=== PATIENT | female | born 1960 | race Caucasian/White ===

== ENCOUNTER 2021-12-18 06:51 | Day surgery (SDC) | payer BC, OTHER ==
[2021-12-18] MEDS ORDERED: Lactated Ringers 1,000 ML IV SCH (07:00)
[2021-12-18] MEDS ORDERED: cefUROXime sodium 0.005 GM in Sodium Chloride Flush 30 ML*** 0.5 ML IJ ONE (07:00)
[2021-12-18] MEDS ORDERED: NON-FORMULARY ITEM OP ONE (07:00)
[2021-12-18] MEDS ORDERED: TETRACAINE 0.5% STERI-UNIT SOL OP ONE ×2 (07:00)
[2021-12-18] MEDS ORDERED: BETADINE 5% OPHTHALMIC 30 ML OP ONE (07:00)
[2021-12-18] MEDS ORDERED: Ak-Dilate OPHTHALMIC*** 1.065 ML, Cyclogyl 1% OPHTH SOL 1.065 ML, GATIFLOXACIN 0.5% OPH... OP ONE ×4 (07:00)
[2021-12-18] MEDS ORDERED: Lactated Ringers 1,000 ML IV ONE (07:47)
[2021-12-18] MEDS ORDERED: DIPRIVAN 200 MG/20 ML IV ONE ×2 (09:00→09:24)
[2021-12-18] MEDS ORDERED: Epinephrine Preservative Free 1 MG/ML IJ ONE (09:00)
[2021-12-18] MEDS ORDERED: LIDOCAINE HCL 1% 50 MG/5 ML VL PF IJ ONE (09:00)
[2021-12-18] MEDS ORDERED: Zofran 4 MG/2 ML VIAL IV PRN (09:00)
[2021-12-18] MEDS ORDERED: ACETAZOLAMIDE 250 MG TABLET PO ONE (09:00)
[2021-12-18 10:01] VITALS: O2SAT 100
[2021-12-18 10:11] VITALS: BP 144/66; PULSE 60
== END 2021-12-18 10:16 | disposition home or self-care (01) ==
LOC: SDC 06:51
PROVIDERS: ATTEND Ophthalmology
DX: H25.812 Combined forms of age-related cataract, left eye (principal); E11.9 Type 2 diabetes mellitus without complications
CPT/HCPCS: 82947; C1780; J0171; J2001; J2704; A9270-GY

== ENCOUNTER 2022-02-12 07:35 | Day surgery (SDC) | payer BC, OTHER ==
[~2022-02-12 07:35] MED LIST: Ak-Dilate OPHTHALMIC*** 1.065 ML, Cyclogyl 1% OPHTH SOL 1.065 ML, GATIFLOXACIN 0.5% OPH... OP ONE; BETADINE 5% OPHTHALMIC 30 ML OP ONE; Lactated Ringers 1,000 ML IV SCH; NON-FORMULARY ITEM OP ONE; TETRACAINE 0.5% STERI-UNIT SOL OP ONE; cefUROXime sodium 0.005 GM in Sodium Chloride Flush 30 ML*** 0.5 ML IJ ONE
[2022-02-12] MEDS ORDERED: Epinephrine Preservative Free 1 MG/ML IJ ONE (07:36)
[2022-02-12] MEDS ORDERED: LIDOCAINE HCL 1% 50 MG/5 ML VL PF IJ ONE (07:36)
[2022-02-12] MEDS ORDERED: Lactated Ringers 1,000 ML IV ONE (08:36)
[2022-02-12] MEDS ORDERED: ACETAZOLAMIDE 250 MG TABLET PO ONE (09:00)
[2022-02-12] MEDS ORDERED: Zofran 4 MG/2 ML VIAL IV PRN (09:00)
[2022-02-12] MEDS ORDERED: DIPRIVAN 200 MG/20 ML IV ONE (10:42)
[2022-02-12] MEDS ORDERED: Xylocaine-Mpf 2% 5 Ml Vial ONE (10:42)
[2022-02-12 11:10] VITALS: O2SAT 97
[2022-02-12 11:14] VITALS: BP 133/75; PULSE 80
== END 2022-02-12 11:16 | disposition home or self-care (01) ==
LOC: SDC 07:35
PROVIDERS: ATTEND Ophthalmology
DX: H25.811 Combined forms of age-related cataract, right eye (principal); E11.9 Type 2 diabetes mellitus without complications
CPT/HCPCS: 82947; C1780; J0171; J2001; J2704; A9270-GY

== ENCOUNTER 2022-04-15 05:59 | Day surgery (SDC) | payer BC, OTHER ==
[2022-04-15] MEDS ORDERED: Lactated Ringers 1,000 ML IV SCH (06:30)
[2022-04-15] MEDS ORDERED: DIPRIVAN 200 MG/20 ML IV ONE ×2 (07:28→07:40)
[2022-04-15] MEDS ORDERED: Versed 2 MG/2 ML Injection ONE (07:28)
[2022-04-15 08:36] VITALS: O2SAT 99
[2022-04-15 08:43] VITALS: BP 138/74; PULSE 68
--- NOTE | 2022-04-15 10:29 | OP ---
SURGERY DATE/TIME: 04/15/2022 0727 PREOPERATIVE DIAGNOSIS: Screening exam. POSTOPERATIVE DIAGNOSES: Small lesion in the transverse colon. PROCEDURE: Colonoscopy with cold forceps biopsy. SURGEON: Dr. Morgan Mcgraw. ANESTHESIA: MAC. Medications given by anesthesia department. HISTORY: The patient is a 61-year-old white female presenting now for screening examination of the colon. She was appraised of the risks of the procedure including the risk of perforation, phlebitis, untoward reaction to medication, bleeding and missed lesions. The patient verbalized her understanding and desired to have the procedure performed. DESCRIPTION OF PROCEDURE: The patient was given the medications by the anesthesia department. She had continuous pulse oximetry, ECG monitoring, intermittent blood pressure monitoring and tidal CO2 monitoring during the examination. The patient is placed in the left lateral decubitus position. A digital rectal examination performed and revealed normal anal sphincter tone and no masses. The flexible Olympus pediatric colonoscope was used to intubate the rectum. A view of the colon was developed sequentially to the cecum. Upon insertion and withdrawal, including a retroflex view in the rectum, was noted one small area in the transverse colon that might possibly represent a sessile tubular adenoma and this was biopsied using cold biopsy technique with forceps. No other mucosal lesions being encountered, the scope was removed from the patient who tolerated the procedure well and was sent back to OP recovery in good condition. The prep was noted to be fair to good.
== END 2022-04-15 08:40 | disposition home or self-care (01) ==
LOC: SDC 05:59
PROVIDERS: ATTEND Family Medicine
DX: Z12.11 Encounter for screening for malignant neoplasm of colon (principal); K63.5 Polyp of colon; E11.9 Type 2 diabetes mellitus without complications
CPT/HCPCS: 82947; J2250; J2704

== ENCOUNTER 2022-10-31 22:06 | Emergency (ER) | payer BC, OTHER ==
[2022-10-31 22:28] VITALS: PULSE 93; O2SAT 98
[2022-10-31 23:09] VITALS: BP 112/83
--- NOTE | 2022-10-31 23:39 | ERPHSYRPT ---
- History of Present Illness Time Seen by Provider: 10/31/22 22:30 Source: patient Exam Limitations: no limitations Patient Subjective Stated Complaint: Pt reports she tripped over a garden hose, hurting right hand up to elbow, right knee, right lower back and left palm. Triage Nursing Assessment: Pt alert and oriented x3. No apparent respiratory distress. Skin w/p/d. Ambulated to ED cot without difficulty, limp noted. No obvious deformities. Physician History: Patient is a 62-year-old female presents to our ED for evaluation status post fall. Patient tripped over a garden hose. Patient has pain to bilateral hands. Patient also has some discomfort to her right elbow and right knee. However no bony tenderness. To either. No BHT or LOC. No neck pain. Cervical spine cleared clinically. The fall was mechanical. It was not associated with chest pain or shortness of breath. No associated nausea vomiting or diaphoresis. No numbness weakness or tingling. Injury occurred just prior to arrival. Patient voices no other complaints or concerns at this time. Portions of this note were created with voice recognition technology. There may be grammatical, spelling, punctuation or sound alike errors Timing/Duration: today Severity: moderate Modifying Factors: Improves With: nothing Associated Symptoms: denies symptoms Allergies/Adverse Reactions: No Known Drug Allergies Allergy (Verified 10/31/22 22:20) Home Medications: Glipizide 5 mg [Glucotrol 5 MG] 5 mg PO BID 12/13/21 [History] Lisinopril 5 mg [Zestril 5 MG] 5 mg PO DAILY 12/13/21 [History] Metformin HCl [Metformin ER Osmotic] 1,000 mg PO BID 12/13/21 [History] Simvastatin 10 mg [Zocor 10MG] 10 mg PO DAILY 12/13/21 [History] Venlafaxine HCl [Effexor Xr] 150 mg PO DAILY 02/12/22 [History] Hx Tetanus, Diphtheria Vaccination/Date Given: No Hx Influenza Vaccination/Date Given: Yes Hx Pneumococcal Vaccination/Date Given: Yes Travel Risk - International Travel Have you traveled outside of the country in past 3 weeks: No - Coronavirus Screening Are you exhibiting any of the following symptoms?: No Close contact with a COVID-19 positive Pt in past 14-21 Days: No - Vaccine Status Have you recieved a Covid-19 vaccination: No - Review of Systems Constitutional: No Symptoms, No Fever, No Chills Eyes: No Symptoms Ears, Nose, & Throat: No Symptoms Respiratory: No Symptoms, No Cough, No Dyspnea Cardiac: No Symptoms, No Chest Pain, No Edema, No Syncope Abdominal/Gastrointestinal: No Symptoms, No Abdominal Pain, No Nausea, No Vomiting, No Diarrhea Genitourinary Symptoms: No Symptoms, No Dysuria Musculoskeletal: No Symptoms, No Back Pain, No Neck Pain Skin: No Symptoms, No Rash Neurological: No Symptoms, No Dizziness, No Focal Weakness, No Sensory Changes Psychological: No Symptoms Endocrine: No Symptoms Hematologic/Lymphatic: No Symptoms Immunological/Allergic: No Symptoms All Other Systems: Reviewed and Negative - Past Medical History Pertinent Past Medical History: Yes Neurological History: No Pertinent History ENT History: Cataracts Cardiac History: High Cholesterol, Hypertension Respiratory History: No Pertinent History Endocrine Medical History: Diabetes Type II Musculoskeletal History: No Pertinent History GI Medical History: No Pertinent History History: No Pertinent History Psycho-Social History: Anxiety - Past Surgical History Past Surgical History: Yes Neuro Surgical History: No Pertinent History Cardiac: No Pertinent History Respiratory: No Pertinent History Gastrointestinal: No Pertinent History Genitourinary: No Pertinent History Musculoskeletal: No Pertinent History Female Surgical History: No Pertinent History Other Surgical History: colonoscopy - Social History Smoking Status: Never smoker Exposure to second hand smoke: Yes Drug Use: none Patient Lives Alone: No - Nursing Vital Signs Nursing Vital Signs: Initial Vital Signs Temperature 98.1 F 10/31/22 22:07 Pulse Rate 90 10/31/22 22:07 Respiratory Rate 16 10/31/22 22:07 Blood Pressure 159/83 10/31/22 22:07 O2 Sat by Pulse Oximetry 97 10/31/22 22:07 Pain Scale Pain Intensity 5 - Physical Exam General Appearance: no apparent distress, alert Eye Exam: PERRL/EOMI, eyes nml inspection Ears, Nose, Throat Exam: normal ENT inspection, TMs normal, pharynx normal, moist mucous membranes Neck Exam: normal inspection, non-tender, supple, full range of motion Respiratory Exam: normal breath sounds, lungs clear, airway intact, No respiratory distress Cardiovascular Exam: regular rate/rhythm, normal heart sounds, normal peripheral pulses Gastrointestinal/Abdomen Exam: soft, normal bowel sounds, No tenderness, No mass Back Exam: normal inspection, normal range of motion, No CVA tenderness, No vertebral tenderness Extremity Exam: normal inspection, normal range of motion, pelvis stable, other (Ecchymosis to the left thenar eminence. Tenderness to palpation at the right fifth metacarpal. No wrist pain elbow range of motion within normal limits. No bony tenderness to the elbow. Patient ambulatory. No bony tenderness at the right knee. All extremities are neurovascular intact distally.) Neurologic Exam: alert, oriented x 3, cooperative, normal mood/affect, nml cerebellar function, nml station & gait, sensation nml, No motor deficits Skin Exam: normal color, warm, dry, No rash Lymphatic Exam: No adenopathy SpO2 Interpretation: normal SpO2: 98 O2 Delivery: Room Air - Course Nursing assessment & vital signs reviewed: Yes - Radiology Exams Hand X-ray Interpretation: Interpreted by me (No fracture dislocation. No soft tissue abnormalities observed on x-ray.) Other X-ray Interpretation: Interpreted by me (Left hand no fracture dislocation. No soft tissue abnormalities.) Ordered Tests: Active Orders 24 hr Category Date Time Status HAND (MINIMUM 3 VIEWS) Stat Exams 10/31/22 23:05 Taken HAND (MINIMUM 3 VIEWS) Stat Exams 10/31/22 23:06 Taken - Progress Progress: improved Progress Note: 62-year-old female presents to emergency department for evaluation status post a fall. Physical exam reveals tenderness to both hands. Patient ambulatory. No BHT or LOC. X-ray of bilateral hands ordered. No fractures or dislocations. Patient observed to have contusion to both hands. No indication for further work-up. Patient Clines pain medication. Will discharge home. Patient agrees to follow-up with primary care doctor within 48 hours for reevaluation. Patient understands that x-rays are good not perfect. Small hairline fractures may be missed. If symptoms continue for period of a week patient is to be reexamined likely will require reimaging. Portions of this note were created with voice recognition technology. There may be grammatical, spelling, punctuation or sound alike errors Complexity of problem addressed is low acute uncomplicated. No critical care time. Complexity of data reviewed and analyzed is moderate. Dr. Dooley independently reviewed and analyzed x-rays of bilateral hands. No fractures or dislocations observed. Risk of complication and or risk morbidity/mortality of patient management is minimal. Patient declined medication for pain. We will discharge home. Patient agrees to follow-up with primary care doctor within 48 hours for evaluation. Dictation disclaimer 10/31/22 23:54 Counseled pt/family regarding: diagnosis, need for follow-up, rad results - Departure Departure Disposition: Home Clinical Impression: Fall, bilateral hand contusion Condition: Stable Critical Care Time: No Referrals: LAVINIA TAYLOR NP [Primary Care Provider] - Follow up/PCP as directed Additional Instructions: Discharge/Care Plan MARYBEL BURNS was seen on 10/31/22 in the Emergency Room. The patient was counseled regarding Diagnosis,Lab results, Imaging studies, need for follow up and when to return to the Emergency Room. Prescriptions given: Discharge Note I have spoken with the patient and/or caregivers. I have explained the patient's condition, diagnosis and treatment plan based on the information available to me at this time. I have answered the patient's and/or caregiver's questions and addressed any concerns. The patient and/or caregivers have as good understanding of the patient's diagnosis, condition and treatment plan as can be expected at this point. The vital signs have been stable. The patient's condition is stable and appropriate for discharge from the emergency department. The patient will pursue further outpatient evaluation with the primary care physician or other designated or consulting physician as outlined in the discharge instructions. The patient and/or caregivers are agreeable to this plan of care and follow-up instructions have been explained in detail. The patient and/or caregivers have received these instruction. The patient/and or caregivers are aware that any significant change in condition or worsening of symptoms should prompt an immediate return to this or the closest emergency department or call 911.
--- NOTE | 2022-11-01 | XRAY ---
CLINICAL HISTORY:Pain; COMPARISON:None; TECHNIQUES:X-ray examination of left hand is performed in AP/lateral and oblique 3 views; FINDINGS: Minimal marginal proliferation noted at the distal small joints of multiple fingers with subtle joint space narrowing. Normal bone density is seen. Intact visualized joint spaces. No definite fracture line or subluxation is seen. No significant soft tissue swelling is seen. IMPRESSION: 1. Finding could be due to very early changes of erosive osteoarthritis/psoriatic osteoarthritis. 2. No acute osseous abnormality seen. DISCLAIMER: A subtle bone abnormality or fracture may not be readily apparent on x-rays, thus clinical correlation and further imaging including follow up CT, MRI, or follow up x-rays are advised as needed. Electronically Signed by: Miriam Bauer MD. (10/31/2022 22:55:59 [employer] FIELD SERVICE TECHNICIAN)
--- NOTE | 2022-11-01 00:22 | XRAY ---
CLINICAL HISTORY:Pain; COMPARISON:None; TECHNIQUES:X-ray examination of right hand is performed in AP/lateral and oblique 3 views; FINDINGS: Minimal marginal proliferation noted at the distal small joints of multiple fingers with subtle joint space narrowing. Normal bone density is seen. Intact visualized joint spaces. No definite fracture line or subluxation is seen. No significant soft tissue swelling is seen. IMPRESSION: Finding could be due to very early changes of erosive/psoriatic osteoarthritis. Clinical correlation is suggested. No acute osseous abnormality seen. DISCLAIMER: A subtle bone abnormality or fracture may not be readily apparent on x-rays, thus clinical correlation and further imaging including follow up CT, MRI, or follow up x-rays are advised as needed. Electronically Signed by: Miriam Bauer MD. (10/31/2022 23:12:24 AUTO ADJUDICATION SPECIALIST)
== END 2022-10-31 23:57 | disposition home or self-care (01) ==
LOC: ED 22:06
DX: S60.222A Contusion of left hand, initial encounter (principal); S60.221A Contusion of right hand, initial encounter; W01.0XXA Fall on same level from slipping, tripping and stumbling without subsequent striking against object, initial encounter; M25.521 Pain in right elbow; M25.561 Pain in right knee; E78.5 Hyperlipidemia, unspecified; I10 Essential (primary) hypertension; E11.9 Type 2 diabetes mellitus without complications; Z79.84 Long term (current) use of oral hypoglycemic drugs; Z79.899 Other long term (current) drug therapy; Z28.310 Unvaccinated for COVID-19
CPT/HCPCS: 73130; 99283